=== PATIENT | female | born 1965 | race Caucasian/White ===

== ENCOUNTER → 2016-07-15 | Outpatient (REF) | payer BC | LOC: M LAB REF 12:27 | PROVIDERS: ATTEND Internal Medicine | DX: M34.9 Systemic sclerosis, unspecified (principal); R74.8 Abnormal levels of other serum enzymes; R53.83 Other fatigue ==

== ENCOUNTER → 2016-08-09 | Outpatient (CLI) | payer BC ==
--- NOTE | 2016-08-13 08:55 | SLEEPCENT ---
DATE OF PROCEDURE: 08/09/2016 ORDERED BY: Danial Marsh DO Nocturnal polysomnography was performed for evaluation of sleep apnea syndrome symptoms in this patient with a prior history of mild positional apnea who has gained weight and is experiencing increasing symptoms. 7 hours and 40 minutes of data were reviewed. There were 275 minutes of sleep identified. Sleep latency was prolonged at 101 minutes. Rapid eye movement (REM) was unmeasured. The patient did not achieve REM sleep. Sleep architecture was quite fragmented over the course of the study. Overall sleep efficiency was reduced at 61%. The patient's electrocardiogram (EKG) showed a sinus rhythm with an average heart rate of 68 beats per minute. Electroencephalogram (EEG) showed some coarsening in background, some mild alpha intrusion into non REM stages. No focal events were seen. There were only 15 respiratory events identified of 10 seconds in duration or greater for an apnea hypopnea index within normal limits at 3.3. Snoring was noted during the study and arousals from respiratory events, when arousals from snoring were included, occurred 3.5 times per hour. There was some limb activity noted. Limb movement arousal index was borderline at 7.8. Oxygen saturations remained 90% plus throughout the study. IMPRESSION: Normal nocturnal polysomnography with snoring and poor sleep progression. RECOMMENDATIONS: Interventions to optimize upper airway tone may help with the snoring issue. The EEG changes and lack of REM sleep may be medication related (venlafaxine). The patient should be encouraged to return to the sleep disorder center for pressure therapy. In the interim, alcohol and sedative avoidance should be practiced and caution exercised during the operation of motor vehicles.
== END ==
LOC: M SLEEP 20:40
PROVIDERS: ATTEND Internal Medicine Pulmonary Disease
DX: Q79.6 Ehlers-Danlos syndromes (principal); I27.2 Other secondary pulmonary hypertension; J84.9 Interstitial pulmonary disease, unspecified; R06.83 Snoring

== ENCOUNTER → 2016-10-27 | Outpatient (REF) | payer BC ==
[2016-10-27 13:34] LABS: INR 0.95
[2016-10-27 14:47] LABS: ALKALINE PHOSPHATASE 122 U/L (45-117); GAMMA GLUTAMYLTRANSPEPTIDASE 153 U/L (5-55); PERCENT SATURATION 14.6 % (13.2-37.4); TOTAL IRON BINDING CAPACITY 411 UG/DL (250-450)
[2016-10-27 14:48] LABS: FERRITIN 27 NG/ML (8-252)
[2016-10-27 14:50] LABS: LABILE ALKPHOS 27 U/L; STABLE ALKPHOS 95 U/L
[2016-10-28 10:53] LABS: ALBUMIN 4.07 GM/DL (3.29-5.55); ALBUMIN % 50.9 % (55.8-66.1); GAMMA GLOBULIN % 18.8 % (11.1-18.8)
== END ==
LOC: M LAB REF 13:04
PROVIDERS: ATTEND Internal Medicine
DX: K21.9 Gastro-esophageal reflux disease without esophagitis (principal); R84.5 Abnormal microbiological findings in specimens from respiratory organs and thorax; R74.8 Abnormal levels of other serum enzymes

== ENCOUNTER → 2017-02-24 | Outpatient (REF) | payer BC ==
[2017-02-24 13:49] LABS: FERRITIN 26 NG/ML (8-252); PERCENT SATURATION 15.9 % (13.2-45.0); TOTAL IRON BINDING CAPACITY 383 UG/DL (250-450); TOTAL PROTEIN 8.1 GM/DL (6.4-8.2)
[2017-02-24 14:09] LABS: INR 0.9
[2017-02-26 00:06] LABS: ALPHA 1 ANTITRYPSIN 131 mg/dL (90-200); TISSUE TRANSGLUTAMINASE IgG <2 U/mL (0-5)
[2017-02-26 14:24] LABS: ALBUMIN 4.27 GM/DL (3.29-5.55); ALBUMIN % 52.7 % (55.8-66.1); GAMMA GLOBULIN % 17.9 % (11.1-18.8)
== END ==
LOC: M LAB REF 08:30
PROVIDERS: ATTEND Internal Medicine
DX: R94.5 Abnormal results of liver function studies (principal)

== ENCOUNTER → 2017-09-17 | Outpatient (REF) | payer BC ==
[2017-09-17 18:33] LABS: RHEUMATOID FACTOR QUANT < 10.0 IU/ML (<15.0)
[2017-09-19 14:19] LABS: ANTINUCLEAR ANTIBODIES DIRECT Negative (Negative)
== END ==
LOC: M LAB REF 16:58
DX: R68.2 Dry mouth, unspecified (principal)
CPT/HCPCS: 86038

== ENCOUNTER → 2017-10-01 | Outpatient (REF) | payer BC ==
[2017-10-03 14:11] LABS: SSA SJOGRENS A <0.2 AI (0.0-0.9); SSB SJOGRENS B <0.2 AI (0.0-0.9)
== END ==
LOC: M LAB REF 17:26
DX: R68.2 Dry mouth, unspecified (principal)
CPT/HCPCS: 86235

== ENCOUNTER → 2017-11-05 | Outpatient (REF) | payer BC ==
[2017-11-05 12:49] LABS: TOTAL PROTEIN 8.4 GM/DL (6.4-8.2)
[2017-11-06 12:41] LABS: ALBUMIN 4.44 GM/DL (3.29-5.55); ALBUMIN % 52.9 % (55.8-66.1); ALPHA-1-GLOBULIN % 3.9 % (2.9-4.9); ALPHA-1-GLOBULINS 0.33 GM/DL (0.17-0.41); ALPHA-2-GLOBULINS 0.97 GM/DL (0.42-0.99); ALPHA-2-GLOBULINS % 11.5 % (7.1-11.8); BETA-1-GLOBULINS % 7.1 % (4.7-7.2); BETA-2-GLOBULINS % 7.2 % (3.2-6.5); GAMMA GLOBULIN % 17.4 % (11.1-18.8); GAMMA GLOBULINS 1.46 GM/DL (0.65-1.58)
== END ==
LOC: M LAB REF 11:51
DX: R94.5 Abnormal results of liver function studies (principal); R76.8 Other specified abnormal immunological findings in serum
CPT/HCPCS: 84165

== ENCOUNTER → 2018-06-13 | Outpatient (REF) | payer BC ==
[2018-06-13 19:54] LABS: APPEARANCE, URINE CLEAR (CLEAR); BACTERIA, URINE AUTO 1+ (NEGATIVE); BILIRUBIN, URINE AUTO NEGATIVE (NEGATIVE); BLOOD, URINE BLOOD NEGATIVE (NEGATIVE); COLOR, URINE AMBER (YELLOW); GLUCOSE, URINE (UA) AUTO NEGATIVE (NEGATIVE); KETONE, URINE AUTO NEGATIVE (NEGATIVE); LEUKOCYTE ESTERASE, URINE AUTO 3+ (NEGATIVE); NITRITE, URINE AUTO POSITIVE (NEGATIVE); PROTEIN, URINE AUTO NEGATIVE (NEGATIVE); RBC, URINE AUTO 2 /HPF (0-3); SPECIFIC GRAVITY URINE AUTO 1.017 (1.002-1.035); SQUAMOUS EPITHELIAL CELL UR AU 1 /HPF (0-6); WBC, URINE AUTO 97 /HPF (0-3)
== END ==
LOC: M LAB REF 09:32
PROVIDERS: ATTEND Physician Assistant Medical
DX: N39.0 Urinary tract infection, site not specified (principal)

== ENCOUNTER → 2018-06-25 | Outpatient (REF) | payer BC ==
[2018-06-25 19:08] LABS: APPEARANCE, URINE CLEAR (CLEAR); BACTERIA, URINE AUTO NEGATIVE (NEGATIVE); BILIRUBIN, URINE AUTO NEGATIVE (NEGATIVE); BLOOD, URINE BLOOD NEGATIVE (NEGATIVE); COLOR, URINE AMBER (YELLOW); GLUCOSE, URINE (UA) AUTO NEGATIVE (NEGATIVE); KETONE, URINE AUTO NEGATIVE (NEGATIVE); LEUKOCYTE ESTERASE, URINE AUTO TRACE (NEGATIVE); NITRITE, URINE AUTO POSITIVE (NEGATIVE); PROTEIN, URINE AUTO NEGATIVE (NEGATIVE); RBC, URINE AUTO 0 /HPF (0-3); SPECIFIC GRAVITY URINE AUTO 1.006 (1.002-1.035); SQUAMOUS EPITHELIAL CELL UR AU 1 /HPF (0-6); WBC, URINE AUTO 2 /HPF (0-3)
== END ==
LOC: M LAB REF 16:21
PROVIDERS: ATTEND Obstetrics & Gynecology
DX: N39.0 Urinary tract infection, site not specified (principal); R30.0 Dysuria

== ENCOUNTER → 2019-09-19 | Outpatient (REF) | payer BC | LOC: M LAB REF 16:58 | PROVIDERS: ATTEND Internal Medicine | DX: R06.02 Shortness of breath (principal) ==

== ENCOUNTER → 2022-03-20 | Outpatient (REF) | payer BC ==
[2022-03-24 15:09] LABS: ANTI CENTROMERE ANTIBODY <0.2 AI (0.0-0.9); ANTI DS-DNA AB Negative (Negative); ANTI SCLERODERMA ANTIBODIES <0.2 AI (0.0-0.9)
== END ==
LOC: M LAB REF 12:18
PROVIDERS: ATTEND Internal Medicine
DX: I73.00 Raynaud's syndrome without gangrene (principal)

== ENCOUNTER → 2022-03-28 | Outpatient (CLI) | payer BC | LOC: M SLEEP 20:00 | PROVIDERS: ATTEND Internal Medicine Pulmonary Disease | DX: G47.33 Obstructive sleep apnea (adult) (pediatric) (principal) ==

== ENCOUNTER → 2022-09-25 | Outpatient (CLI) | payer BC | LOC: M WUC 11:10 | PROVIDERS: ATTEND Internal Medicine | DX: R52 Pain, unspecified (principal); M34.9 Systemic sclerosis, unspecified ==

== ENCOUNTER → 2023-04-14 | Outpatient (REF) | payer MEDICARE ==
[2023-04-15 17:36] LABS: HEPATITIS B CORE ANTIBODY IGM NEGATIVE (NEGATIVE); HEPATITIS C VIRUS ABY INDEX 0.04 INDEX (<0.8)
== END ==
LOC: M LAB REF 16:14
PROVIDERS: ATTEND Internal Medicine
DX: K76.0 Fatty (change of) liver, not elsewhere classified (principal); R94.5 Abnormal results of liver function studies

== ENCOUNTER → 2023-04-27 | Outpatient (CLI) | payer BC, MEDICARE ==
[2023-04-27 13:05] LABS: ALBUMIN 3.7 G/DL (3.2-5.2); BILIRUBIN,DIRECT 0.1 MG/DL (<0.4); BILIRUBIN,TOTAL 0.4 MG/DL (0.3-1.2); TOTAL PROTEIN 7.6 G/DL (5.7-8.2)
== END ==
LOC: M WUC 08:25
PROVIDERS: ATTEND Internal Medicine
DX: K76.0 Fatty (change of) liver, not elsewhere classified (principal); E11.9 Type 2 diabetes mellitus without complications

== ENCOUNTER → 2023-06-02 | Outpatient (CLI) | payer MEDICARE ==
[2023-06-02 13:10] LABS: ALBUMIN 3.8 G/DL (3.2-5.2); BILIRUBIN,DIRECT 0.1 MG/DL (<0.4); BILIRUBIN,TOTAL 0.4 MG/DL (0.3-1.2); TOTAL PROTEIN 7.7 G/DL (5.7-8.2)
== END ==
LOC: M WUC 09:44
PROVIDERS: ATTEND Internal Medicine
DX: K76.0 Fatty (change of) liver, not elsewhere classified (principal); E11.9 Type 2 diabetes mellitus without complications

== ENCOUNTER → 2023-08-04 | Outpatient (CLI) | payer MEDICARE | LOC: M CARPUL 13:21 | PROVIDERS: ATTEND Internal Medicine | DX: M34.9 Systemic sclerosis, unspecified (principal); I08.1 Rheumatic disorders of both mitral and tricuspid valves; I31.39 Other pericardial effusion (noninflammatory) ==

== ENCOUNTER → 2023-08-17 | Outpatient (REF) | payer MEDICARE, BC | LOC: M PLALAB 12:05 | PROVIDERS: ATTEND Obstetrics & Gynecology | DX: Z12.4 Encounter for screening for malignant neoplasm of cervix (principal); R87.615 Unsatisfactory cytologic smear of cervix | CPT/HCPCS: 87624; G0123 ==

== ENCOUNTER → 2023-09-01 | Outpatient (CLI) | payer MEDICARE | LOC: M WHC 14:43 | PROVIDERS: ATTEND Obstetrics & Gynecology | DX: N84.1 Polyp of cervix uteri (principal); D25.9 Leiomyoma of uterus, unspecified; N88.8 Other specified noninflammatory disorders of cervix uteri ==

== ENCOUNTER → 2023-10-23 | Outpatient (CLI) | payer MEDICARE | LOC: M WUC 10:01 | PROVIDERS: ATTEND Internal Medicine | DX: R06.09 Other forms of dyspnea (principal) ==

== ENCOUNTER → 2023-11-11 | Outpatient (CLI) | payer MEDICARE | LOC: M EKG 08:57 | PROVIDERS: ATTEND Internal Medicine Cardiovascular Disease | DX: I47.19 Other supraventricular tachycardia (principal) ==

== ENCOUNTER 2023-12-21 06:23 | Day surgery (SDC) | payer MEDICARE ==
[~2023-12-21] VITALS: Ht 162.6 cm; Wt 90.7 kg
[~2023-12-21 06:23] MED LIST: ATOR1TAB21 PO; COLA100C5 PO; LOSA100T46 PO; LR 1,000 ML IV SCH; NORT25CA2 PO; NORT75CA2 PO; OMEP10CASR PO; VERA120C PO; VITA100093 PO
[2023-12-21] MEDS ORDERED: ACETAMINOPHEN 1000MG 100ML IV BAG As Ordered ONE (06:56)
[2023-12-21] MEDS ORDERED: ONDANSETRON 4MG 2ML VIAL As Ordered ONE (06:56)
[2023-12-21] MEDS ORDERED: KETOROLAC 60MG 2ML VIAL As Ordered ONE (06:58)
[2023-12-21] MEDS ORDERED: LIDOCAINE 2% 100MG/5ML SDV (FOR ANES.) As Ordered ONE (06:58)
[2023-12-21] MEDS ORDERED: propofoL 200 MG/20 ML VIAL As Ordered ONE (06:58)
[2023-12-21 07:01] LABS: HEMATOCRIT 41.3 % (36.0-47.0); HEMOGLOBIN 13.5 g/dl (12.0-15.5); MEAN CORPUSCULAR HEMOGLOBIN 28.2 pg (27.0-33.0); MEAN CORPUSCULAR HGB CONC 32.7 g/dl (32.0-36.5); MEAN CORPUSCULAR VOLUME 86.4 fl (80.0-96.0); PLATELET COUNT, AUTOMATED 279 10^3/uL (150-450); RED BLOOD COUNT 4.78 10^6/uL (4.00-5.40); WHITE BLOOD COUNT 7.6 10^3/uL (4.0-10.0)
[2023-12-21] MEDS ORDERED: fentaNYL 100 MCG/2 ML INJECTION As Ordered ONE (07:03)
[2023-12-21] MEDS ORDERED: MIDAZOLAM INJ 2MG/2ML VIAL As Ordered ONE (07:03)
[2023-12-21] MEDS: LR 1,000 ML IV SCH (07:13)
[2023-12-21] MEDS: SILVER NITRATE APPLICATOR (1 = QTY 10) As Ordered ONE (07:14)
[2023-12-21] MEDS: LIDOCAINE 1% SDV 30ML VIAL As Ordered ONE (07:51)
[2023-12-21] MEDS ORDERED: oxyCODONE 5MG TAB PO PRN (08:40)
[2023-12-21] MEDS ORDERED: HYDROMORPHONE HCL 0.5 MG/ 0.5 ML SYRINGE IV PRN (08:40)
[2023-12-21] MEDS ORDERED: fentaNYL 100 MCG/2 ML INJECTION IV PRN (08:40)
[2023-12-21] MEDS ORDERED: LR 1,000 ML IV SCH (08:40)
[2023-12-21] MEDS ORDERED: ONDANSETRON 4MG 2ML VIAL IV PRN (08:40)
[2023-12-21 09:27] VITALS: BP 145/70; TEMP 97.9; O2SAT 97
== END 2023-12-21 09:38 | disposition home or self-care (01) ==
LOC: M SDC 06:23
PROVIDERS: ATTEND Obstetrics & Gynecology
DX: N84.1 Polyp of cervix uteri (principal); D25.0 Submucous leiomyoma of uterus; F41.9 Anxiety disorder, unspecified; Z88.2 Allergy status to sulfonamides; Z88.5 Allergy status to narcotic agent; Z88.8 Allergy status to other drugs, medicaments and biological substances
CPT/HCPCS: 36415; 58561; 81025; 85027; 86850; 86900; 86901; 88305; J0131; J1100; J1885; J2250; J2405; J3010

== ENCOUNTER → 2024-07-01 | Outpatient (REF) | payer MEDICARE, BC ==
[~2024-07-01] MED LIST changes: -LR 1,000 ML IV SCH
== END ==
LOC: M LAB REF 12:32
PROVIDERS: ATTEND Internal Medicine
DX: K76.0 Fatty (change of) liver, not elsewhere classified (principal); K29.70 Gastritis, unspecified, without bleeding

== ENCOUNTER → 2024-08-19 | Outpatient (CLI) | payer MEDICARE | LOC: M SLEEP 20:00 | PROVIDERS: ATTEND Internal Medicine Pulmonary Disease | DX: G47.33 Obstructive sleep apnea (adult) (pediatric) (principal) ==

== ENCOUNTER → 2025-06-12 | Outpatient (CLI) | payer MEDICARE ==
[~2025-06-12] MED LIST changes: +PROHANCE 279.3MG/ML 15ML VIAL ONE; +PROHANCE 279.3MG/ML 5ML VIAL ONE
== END ==
LOC: M PLAIMG 11:35
PROVIDERS: ATTEND Internal Medicine
DX: Z12.39 Encounter for other screening for malignant neoplasm of breast (principal); Z80.3 Family history of malignant neoplasm of breast; R92.2 Inconclusive mammogram
CPT/HCPCS: A9579; C8908